=== PATIENT | male | born 1970 | race Caucasian/White ===

== ENCOUNTER 2016-08-21 11:33 | Emergency (ER) | payer MEDICAID ==
[~2016-08-21] VITALS: Ht 165.1 cm; Wt 80.0 kg
[2016-08-21] MEDS ORDERED: MORPHINE SULFATE 4 MG/ML CPJ (NOT FOR IM USE) IV STA (12:26)
[2016-08-21] MEDS ORDERED: TETANUS, DIPHTHERIA, PERTUSSIS VAC/PF 0.5ML (>7YR OLD) IM ONE (12:30)
[2016-08-21] MEDS ORDERED: CEFAZOLIN 1000MG PREMIX 50 ML IV ONE (12:30)
[2016-08-21] MEDS ORDERED: BACITRACIN ZINC OINT UDPKT TOP ONE (14:15)
[2016-08-21] MEDS ORDERED: LIDOCAINE HCL 1% 20ML VIAL (Pyxis) INJ MC ONE (14:15)
[2016-08-21] MEDS ORDERED: KETOROLAC 30MG/ML VIAL IV ONE (17:30)
[2016-08-21 18:50] VITALS: BP 120/89
== END 2016-08-21 19:15 | disposition short-term general hospital (02) ==
LOC: ER 11:46
DX: S61.210A Laceration without foreign body of right index finger without damage to nail, initial encounter (principal); F17.200 Nicotine dependence, unspecified, uncomplicated; W45.8XXA Other foreign body or object entering through skin, initial encounter; Y93.89 Activity, other specified; Y92.89 Other specified places as the place of occurrence of the external cause; Y99.8 Other external cause status
CPT/HCPCS: 12002; 73130; 90471; 90715; 96365; 96375; 99285; J0690; J1885; J2270; J3490; Z7610; 99284